=== PATIENT | male | born 1960 | race Two or more races ===

== ENCOUNTER 2016-06-26 11:40 | Day surgery (SDC) | payer OTHER ==
[2016-06-23 17:26] VITALS: BMI 29.7
[~2016-06-26] VITALS: Ht 170.2 cm; Wt 88.9 kg
[2016-06-26] VITALS (23 sets, daily range): BP systolic 100–172; BP diastolic 43–78; PULSE 20–100; RESP 10–21; Ht 170.2 cm; Wt 88.9 kg
[2016-06-26] MEDS ORDERED: MIDAZOLAM 1 MG/ML 2 ML INJ ONE (13:45)
[2016-06-26] MEDS ORDERED: FENTAnyl 50 MCG/ML VIAL ONE (13:45)
[2016-06-26] MEDS ORDERED: BUPIVACAINE 0.5%/EPI (SDV) 30 ML INJ ONE (13:46)
[2016-06-26] MEDS ORDERED: ROPIVACAINE 0.5 % 30 ML VIAL ONE (13:46)
[2016-06-26] MEDS ORDERED: CEFAZOLIN 1 GM INJ ONE (15:00)
[2016-06-26] MEDS ORDERED: HYDROmorphONE (0.2 MG/ML) 10ML SYG IV PRN ×2 (16:00)
[2016-06-26] MEDS ORDERED: hydrALAzine 20 MG INJ IV PRN (16:00)
[2016-06-26] MEDS ORDERED: NALOXONE (0.4 MG/ML) INJ IV PRN (16:00)
[2016-06-26] MEDS ORDERED: LABETALOL HCL 20MG INJ IV PRN (16:00)
[2016-06-26] MEDS ORDERED: FENTAnyl 50 MCG/ML VIAL IV PRN (16:00)
[2016-06-26] MEDS ORDERED: ONDANSETRON 4 MG INJ IV PRN (16:00)
[2016-06-26] MEDS ORDERED: MEPERIDINE 25 MG INJ IV PRN (16:00)
[2016-06-26] MEDS ORDERED: hydrALAzine 20 MG INJ ONE ×2 (16:00→17:59)
[2016-06-26] MEDS ORDERED: DIPHENHYDRAMINE 50 MG INJ IV PRN (16:00)
[2016-06-26] MEDS ORDERED: morphine 10 MG INJ ONE ×2 (16:22→19:01)
[2016-06-26] MEDS ORDERED: POLYMYXIN/BACITRACIN 1L IRRIG IRR ONE (16:32)
[2016-06-26] MEDS ORDERED: THROMBIN(HUM PLAS)/FIBRINOG/CA 5 ML VIAL TOP ONE (19:28)
[2016-06-26] MEDS ORDERED: NEOMYC/POLYMYX/BACIT 3.5GM OPH OINT ONE (19:55)
[2016-06-26] MEDS ORDERED: NEOMYC/POLYMYX/BACIT 30 GM OINT ONE (19:55)
[2016-06-26] MEDS ORDERED: METOCLOPRAMIDE 10 MG INJ ONE (20:34)
[2016-06-26] MEDS ORDERED: ROCURONIUM 50 MG INJ ONE (20:34)
[2016-06-26] MEDS ORDERED: ONDANSETRON 4 MG INJ ONE (20:34)
[2016-06-26] MEDS ORDERED: PROPOFOL 20 ML ONE (20:34)
[2016-06-26] MEDS ORDERED: DEXAMETHASONE 4 MG/ML 1 ML INJ ONE (20:34)
[2016-06-26] MEDS ORDERED: LIDOCAINE 2% (SDV) 5 ML INJ ONE (20:34)
[2016-06-26] MEDS ORDERED: NEOSTIGMINE 3 MG/3 ML SYRINGE ONE (20:44)
[2016-06-26] MEDS ORDERED: GLYCOPYRROLATE 0.4 MG INJ ONE (20:44)
--- NOTE | 2016-06-26 21:15 | HPN ---
Date/Time of Note Date/Time of Note DATE: 06/26/16 TIME: 14:15 Interval H&P Admission Note Pt. seen H&P reviewed: No system changes GISSEL SMILEY MD Jun 26, 2016 21:15
[2016-06-26] MEDS ORDERED: morphine 2 MG INJ IV PRN (21:30)
[2016-06-26] MEDS ORDERED: OXYCODONE/ACETAMINOPHEN (5/325) TAB PO PRN (21:30)
--- NOTE | 2016-06-26 22:17 | OPR ---
Date/Time of Note Date/Time of Note DATE: 06/26/16 TIME: 22:09 Operative Report Procedure Date: Jun 26, 2016 Preoperative Diagnosis 1.left knee anterior crucial ligament rupture 2. Left knee medial meniscus bucket-handle tear 3. Left knee medial femoral condyle osteochondral lesion Postoperative Diagnosis 1. left knee anterior crucial ligament rupture 2. Left knee medial meniscus bucket-handle tear 3. Left knee medial femoral condyle osteochondral lesion Operation Performed 1. left knee anterior crucial ligament reconstruction with allograft Achilles tendon 2. Left knee arthroscopic medial meniscus bucket-handle tear repair 3. Left knee arthroscopic medial femoral condyle osteochondral lesion debridement and microfracture 4. left knee arthroscopic medial femoral condyle osteochondral allograft transplantation with Arthrex bio cartilage 5. application of platelet rich plasma to the left knee 6. left knee arthroscopy with chondroplasty. 7. left knee arthroscopic loose body removal Surgeon: GISSEL NORWOOD MD Slitting And Shipping Supervisor: TOM NORWOOD MD Anesthesia: general, other (Regional block with fascia iliacus block) Tourniquet Time: 135 minutes at 250 mmHg Estimated Blood Loss: minimal Specimens None Complications: None Pt Condition Post Procedure: stable Disposition: PACU Indications Patient is a 55-year-old gentleman who sustained a rupture of his anterior cruciate ligament along with a bucket-handle tear of his medial meniscus and osteochondral defect of his medial femoral condyle. Given his significant instability as well as pain and findings on MRI patient was indicated for surgery. Risk note: Patient was expand the risks and benefits of the patient's surgery patient's soboba language including but not limited to infection, bleeding, injury to the blood vessels, nerves, ligaments or tendons. Need for future surgery, risk of arthritis, risks of anesthesia, risk of blood clot, loss of limb and life. Patient acknowledged the these risk by signing the surgical consent form. Procedure Description The patient was seen in the preoperative area by the anesthesiologist, and under ultrasonic guidance, a fascia iliacus block anesthesia was placed under ultrasonic guidance in the left lower extremity to provide postoperative analgesia and to allow a lower level of general anesthesia during the procedure. The patient was taken to the operating room where general anesthesia was induced with the patient in the supine position. Following induction of anesthesia, the patient's left knee was examined. The patient had full range of motion of the left knee. He had a 2+ Joey and anterior drawer with a soft endpoint and a 2 to 3+ positive pivot shift. There was no varus-valgus or posterolateral laxity. The patient's left knee and leg were thoroughly scrubbed, prepped, and draped for surgery in the usual sterile fashion. Standard arthroscopic portals were used with an inferolateral portal created for insertion of the 30-degree arthroscope which was connected to a television monitor, video recorder, and fluid inflow pump. A second portal was created inferomedially under direct vision for insertion of an operating cannula and instruments. The knee was examined in a systematic fashion. The patient had a normal patellofemoral joint. The patella tracked normally in the trochlear groove. The medial gutter was normal. The medial compartment was entered and there was a bucket-handle tear in the medial meniscus with a horizontal cleavage tear and flap in the mid to posterior portion. There was a large full-thickness 3 x 4 mm chondral defect of the medial femoral condyle. There was some mild chondromalacia medially. The anterior cruciate ligament was completely torn and scarred down in the intercondylar notch. The posterior cruciate ligament was intact. The lateral meniscus was intact. There was good articular cartilage in the lateral femoral condyle with some mild chondromalacia and softening of the lateral tibial plateau. The popliteus tendon and lateral gutter were normal. The medial meniscal tear was addressed first. The medial meniscus was reduced and held in place with a stay stitched and the borders were debrided and rasped in order to improve the healing potential at the red red and red white zone. The meniscus was then repaired with several Rivas and nephew fast fix suture repair kit. The rim was then partially resected at the flap tear using combination of basket forceps and a shaver to get back to a smooth stable rim. This was tapered smoothly in the remaining middle third of the meniscus, working through both the standard portal and looking through the intercondylar notch to insure adequate resection. Approximately 1 cm size loose body was removed from the medial gutter. At this point, it was elected to proceed with ligament reconstruction. The allograft tendon was prepared. The Achilles tendon allograft was used. This was cut with a 10 mm x 25 mm bone plug from the end of the graft and the graft was tubed so it passed easily through a 10 mm cannula. One end of the graft was fixed with sutures of #2 Ethibond while Mersilene tape was placed in the other end of the graft. The graft was maintained in antibiotic irrigation for the remainder of the case. The knee joint was re-entered. Notchplasty was performed using the full radius resector to remove bone from the superior and lateral aspect of the intercondylar notch, all the way back to the [id number] position. The torn anterior cruciate ligament stump was also debrided. With the knee flexed 90 degrees, the Acufex Pro-Trac guide was placed in the posterior aspect of the previous anterior cruciate ligament insertion. The guide was set at a 50 degree angle. The guide wire was drilled up through the guide into the old insertion site. This was over-drilled with a 7 mm reamer. This was then drilled to its final size of 10 mm with the tunnel well- positioned just anterior to the posterior cruciate ligament. Excess soft tissues were debrided from the margins of the tunnel, and a reverse chamfering device was used to smooth the posterior aspect of the tunnel. The Arthrex 7 mm [id number] guide was used to locate a point 7 mm anterior to the [id number] position at the 10:30 o'clock position in the intercondylar notch. With the knee flexed 90 degrees, a Beath pin was drilled up through this area and out the lateral thigh. This was over-drilled up to a 10 mm size. The tunnel was well-positioned 2 mm anterior to the [id number] position. Excess bone fragments were suctioned from the joint with a shaver. A notch was created in the anterior aspect of the tunnel for insertion of a fixation screw. The Beath pin was then used to pull the sutures of the graft up through the tibial tunnel, out the femoral tunnel, and out the side of the thigh. The graft was pulled into position. The knee was maximally flexed, and a 4 mm dilator was used to create a tunnel anterior to the graft for insertion of the screw. A 8 mm x 25 mm Rivas & Nephew soft silk metal screw was placed up through the tunnel over a guide wire with the knee flexed. This gave excellent graft fixation. The knee was passed through a range of motion. There was excellent graft isometry. There was no evidence of impingement superiorly or laterally. The Fast -Lock fixation device was used First, prior to the bio sure LATHAM screw placement to fix the Mersilene tape and the graft securely to the tibia under tension. Once the fast lock achieved ultimate tension, this was impacted so there was no protrusion. . It was also elected to proceed with back-up fixation. Tension was applied to the knee with posterior crime scene examiner 20 degrees of flexion. A 9 mm x 20 mm absorbable BioSureRG screw was placed to fix the tibial graft with the knee in 20 degrees of flexion. This gave good graft fixation. The bio sure RG screw was placed to obtain a cup fixation. Attention was then turned back to the medial femoral condyle and the 3 x 4 mm full-thickness chondral defect was debrided that there was a firm a stable rim surrounding the cartilage lesion. The chondral defect site was curetted and then microfractured with both 0.45 K wire with a trocar tip and with a microfracture pick. The water was then turned off and dry surface was achieved at the femoral condyle lesion and the lesion was then packed with Arthrex bio cartilage that had been mixed with 1 cc of platelet rich plasma at 2% hematocrit. Fibrin glue was then placed over the site of the lesion and we waited possibly 7 minutes for the fibrin glue to dry. The water was then turned back on and the remaining biocartilage in the joint was debrided and removed and the lesion was smoothed down so that there were no extruding portions of the biocartilage on the lesion site. The knee was passed through a range of motion and there was full range of motion with full extension and flexion. The patient had a negative Joey, negative anterior drawer, and negative pivot shift. The graft was probed intraarticularly and had good tension to a range of motion. The knee was thoroughly irrigated and drained. The skin was closed with a 2-0 Vicryl followed by 3-0 Monocryl subcutaneous suture and a #4-0 Maxon subcuticular suture and Steri-Strips. The knee was injected with 3 cc of platelet rich plasma spun at 2 % hematocrit mixed with 3 cc of platelet poor plasma. The knee was dressed with 4 x 4's soaked in platelet poor plasma ABDs and wrapped in soft roll and bias. The patient was awakened from anesthesia without any complications and was transported back to the recovery room awake, alert, and in good condition, wearing a knee brace locked in extension. The neurovascular status was intact in the foot at the end of the case. All sponge, instrument, and needle counts were correct at the end of the case. ACQUISITION ANALYST SURGEON: Tom Norwood, an orthopedic surgeon, assisted on the case. The patient had a technically difficult case with an unstable knee and the 2 surgeons worked simultaneously to stabilize the knee, hold the arthroscope, work with the instruments, pass and grab the graft from each other, and to prepare the graft. Having 2 skilled surgeons was essential to do this case properly and to decrease the risk of complications and a potentially poorer outcome. It was also essential to assist in graft preparation and the procedure . GISSEL NORWOOD MD Jun 26, 2016 22:17
[2016-06-27] VITALS (10 sets, daily range): BP systolic 105–132; BP diastolic 50–74; PULSE 63–101; RESP 14–20
[2016-06-27] MEDS: CEFAZOLIN 1 GM/50 ML (PMX) 50 ML IVPB SCH ×3 (00:22→13:50)
[2016-06-27] MEDS: LACTATED RINGER'S 1,000 ML IV SCH ×2 (00:22→10:30)
[2016-06-27] MEDS: OXYCODONE/ACETAMINOPHEN (10/325) TAB PO SCH ×4 (00:30→12:23)
[2016-06-27] MEDS: ONDANSETRON 4 MG INJ IV PRN ×2 (01:12→07:02)
--- NOTE | 2016-06-27 12:56 | PN ---
Date/Time of Note Date/Time of Note DATE: 06/27/16 TIME: 12:56 Assessment/Plan Lines/Catheters IV Catheter Type (from Nrsg): Peripheral IV Fisher in Place (from Nrsg): No Assessment/Plan Assessment/Plan POD#1 s/p 1. left knee anterior crucial ligament reconstruction with allograft Achilles tendon 2. Left knee arthroscopic medial meniscus bucket-handle tear repair 3. Left knee arthroscopic medial femoral condyle osteochondral lesion debridement and microfracture 4. left knee arthroscopic medial femoral condyle osteochondral allograft transplantation with Arthrex bio cartilage 5. application of platelet rich plasma to the left knee 6. left knee arthroscopy with chondroplasty -- NWB to the LLE - PO Pain control - SCDs, teds, asa 81 - PT to gt - DC home today E MD SHERICE Subjective 24 Hr Interval Summary Doing much better Pain controlled no f/c/n/v Constitutional: BM, ambulates, flatus, improved, no complaints, urine output Pain Control: well controlled Exam/Review of Systems Vital Signs Vitals Vital Signs Date Time Temp Pulse Resp B/P Pulse Ox O2 Delivery O2 Flow Rate FiO2 06/27/16 08:30 98.0 98 20 115/54 98 06/27/16 03:33 Room Air 06/27/16 02:33 1.0 Intake and Output 06/26/16 06/26/16 06/27/16 15:00 23:00 07:00 Intake Total 1800 ml 1670 ml Output Total 80 ml 750 ml Balance 1720 ml 920 ml Exam Constitutional: alert, oriented, well developed Musculoskeletal: other (lle/ dressing intact, toes wiggle, silt m/l/d/p/fdws, cr brisk) GISSEL SMILEY MD Jun 27, 2016 12:56
--- NOTE | 2016-06-27 12:57 | DS ---
Date/Time of Note Date/Time of Note DATE: 06/27/16 TIME: 12:56 Discharge Summary Admission/Discharge Info Admit Date/Time Jun 27, 2016 at 00:20 Discharge Date/Time 06/27/16 Final Diagnosis left knee acl tear, medial meniscal tear Patient Condition: Good Procedures 1. left knee anterior crucial ligament reconstruction with allograft Achilles tendon 2. Left knee arthroscopic medial meniscus bucket-handle tear repair 3. Left knee arthroscopic medial femoral condyle osteochondral lesion debridement and microfracture 4. left knee arthroscopic medial femoral condyle osteochondral allograft transplantation with Arthrex bio cartilage 5. application of platelet rich plasma to the left knee 6. left knee arthroscopy with chondroplasty Hospital Course Patient admitted post op for pain control and nausea GISSEL SMILEY MD Jun 27, 2016 12:57
--- NOTE | 2016-06-27 12:59 | PDOCDIS ---
Discharge Instructions CONDITION Patient Condition: Good HOME CARE INSTRUCTIONS: Diet Instructions: Regular ACTIVITY: Activity Restrictions: Do not Drive Do not operate Machinery Do not operate Power Tool No Weight Bearing GISSEL SMILEY MD Jun 27, 2016 12:59
== END 2016-06-27 14:05 | disposition home or self-care (01) ==
LOC: SDS 11:40 → MS1 06-27 00:20 → SDS 06-27 00:20
PROVIDERS: ADMIT Orthopaedic Surgery; ATTEND Orthopaedic Surgery
DX: M23.232 Derangement of other medial meniscus due to old tear or injury, left knee (principal); S83.512D Sprain of anterior cruciate ligament of left knee, subsequent encounter; X58.XXXD Exposure to other specified factors, subsequent encounter; E78.5 Hyperlipidemia, unspecified; E66.9 Obesity, unspecified; Z68.30 Body mass index [BMI] 30.0-30.9, adult
CPT/HCPCS: 29881; 29888; 96365; 96375; 96376; C1713; C1762; C9250; G0378; J0360; J0690; J1100; J2250; J2270; J2405; J2765; J2795; J3010; J7120; J2710

== ENCOUNTER 2017-04-03 09:18 | Day surgery (SDC) | END 2017-04-03 12:08 | disposition home or self-care (01) ==